=== PATIENT | female | born 1990 | race Caucasian/White ===

== ENCOUNTER 2018-03-15 16:27 | Emergency (ER) | payer BC, SELFPAY ==
[2018-03-15] MEDS ORDERED: Sodium Chloride 0.9% 1000 ML 1,000 ML IV STA (18:27)
[2018-03-15] MEDS ORDERED: TYLENOL EXTRA STRENGTH 500 MG PO PRN (18:28)
--- NOTE | 2018-03-15 18:35 | ERPHSYRPT ---
<BRITTANY CABELLO - Last Filed: 03/15/18 21:03> - History of Present Illness Source: patient Exam Limitations: no limitations Patient Subjective Stated Complaint: Right Breast Pain x2 days, hx of clogged milk duct. Breast feeding 7 month old. Triage Nursing Assessment: Pt presents to the ED with complaints of right breast pain x2 days. Pt states she is breast feeding her 7 month old child. Pt states she has hx of clogged milk duct. Decreased milk production x2 days. Breast not assessed at this time, deffered to MD. No distress noted, skin PWD. Timing/Duration: yesterday Fever Severity: moderate Associated Symptoms: cough International travel in last 2 weeks: No Hx Tetanus, Diphtheria Vaccination/Date Given: Yes Hx Influenza Vaccination/Date Given: Yes Hx Pneumococcal Vaccination/Date Given: Yes Immunizations Up to Date: Yes <LIUDMILA CUMMINS - Last Filed: 03/16/18 18:21> - History of Present Illness Time Seen by Provider: 03/15/18 18:13 Physician History: Pt has been breast feeding a 7.5 months child. She developed left breast soreness since yesterday, fever today (102.7 F). She states, she tried to pump her right breast, but nothing came out. She denies bleeding, she has mild cough for 2 weeks, and cold symptoms, but no sore throat, SOB, chest pain or vomiting. She called her physician and Clindamycin and Reglan was called in, but she did not pick it up yet. (LIUDMILA CUMMINS) Allergies/Adverse Reactions: amoxicillin [From Augmentin] Allergy (Severe, Verified 03/15/18 16:50) Shortness of Breath cephalexin [From Keflex] Allergy (Severe, Verified 03/15/18 16:50) Shortness of Breath clavulanic acid [From Augmentin] Allergy (Severe, Verified 03/15/18 16:50) Shortness of Breath codeine Allergy (Severe, Verified 03/15/18 16:50) Shortness of Breath Home Medications: Vits W-Ca,Fe,FA(<1Mg) [] 1 each PO DAILY 03/15/18 [History] - Review of Systems Constitutional: Fever, Chills Genitourinary Symptoms: Other (right breast soreness) All Other Systems: Reviewed and Negative <LIUDMILA CUMMINS - Last Filed: 03/16/18 18:21> - Past Medical History Pertinent Past Medical History: Yes Respiratory History: Asthma Other Medical History: Narcolepsy, restless leg - Past Surgical History Past Surgical History: Yes Neuro Surgical History: No Pertinent History Other Surgical History: Carpel Tunnel - Social History Smoking Status: Never smoker Exposure to second hand smoke: No Drug Use: none Patient Lives Alone: No - Female History Hx Now: No <LIUDMILA CUMMINS - Last Filed: 03/16/18 18:21> - Physical Exam General Appearance: no apparent distress Eye Exam: eyes nml inspection ENT Exam: normal ENT inspection, pharynx normal, nasal congestion Neck Exam: normal inspection, non-tender, supple, trachea midline, No JVD, No lymphadenopathy (R), No lymphadenopathy (L) Respiratory Exam: normal breath sounds, chest non-tender, lungs clear, no respiratory distress Cardiovascular/Chest Exam: normal heart sounds, regular rate/rhythm, normal peripheral pulses, No murmur, No edema, No JVD Gastrointestinal/Abdominal Exam: soft, non tender, no distention, no guarding Pelvic Exam: not done Extremity Exam: non-tender, normal inspection, no calf tenderness, no pedal edema Neurologic Exam: alert, oriented x 3 Skin Exam: normal color, warm, dry, other (right breast: mod. lateral upper quadrant tenderness, glandular, but no definite mass, abscess felt, no enlarged or tender axillary lymph nodes on the right side.), No rash Lymphatic: No adenopathy SpO2 Interpretation: normal SpO2: 98 Oxygen Delivery: Room Air <LIUDMILA CUMMINS - Last Filed: 03/16/18 18:21> - Nursing Vital Signs Nursing Vital Signs: Initial Vital Signs Temperature 98.9 F 03/15/18 16:42 Pulse Rate 117 H 03/15/18 16:42 Respiratory Rate 16 03/15/18 16:42 Blood Pressure 115/76 03/15/18 16:42 O2 Sat by Pulse Oximetry 98 03/15/18 16:42 Pain Scale Pain Intensity 0 - Course Nursing assessment & vital signs reviewed: Yes <LIUDMILA CUMMINS - Last Filed: 03/16/18 18:21> Ordered Tests: Active Orders 24 hr Category Date Time Status IV Insertion STAT Care 03/15/18 18:27 Active CHEST 2 VIEWS (PA AND LAT) Stat Exams 03/15/18 18:28 Completed BLOOD CULTURE Stat Lab 03/15/18 19:00 Received CBC W DIFF Stat Lab 03/15/18 18:45 Completed CMP Stat Lab 03/15/18 18:45 Completed CULTURE, THROAT Stat Lab 03/15/18 19:00 Received HCG,QUALITATIVE URINE Stat Lab 03/15/18 18:45 Completed Lactic Acid Stat Lab 03/15/18 18:35 Completed SED RATE [Erythrocyte Sedimentation Rate] Stat Lab 03/15/18 18:45 Completed STREP SCREEN-BETA A Stat Lab 03/15/18 19:00 Completed Medication Summary Discontinued Medications Generic Name Dose Route Start Last Admin Trade Name Freq PRN Reason Stop Dose Admin Acetaminophen 1,000 mg 03/15/18 18:28 03/15/18 18:42 Tylenol Extra Strength 500 Mg PO 04/14/18 18:27 1,000 mg Q4H PRN PRN Administration HEADACHE Acetaminophen Confirm 03/15/18 18:41 Tylenol Extra Strength 500 Mg Administered 03/15/18 18:42 Dose 1,000 mg .ROUTE .STK-MED ONE Sodium Chloride 1,000 mls @ 999 mls/hr 03/15/18 18:27 03/15/18 18:42 Sodium Chloride 0.9% 1000 Ml IV 03/15/18 19:27 999 mls/hr .Q1H1M STA Administration Sodium Chloride Confirm 03/15/18 18:41 Sodium Chloride 0.9% 1000 Ml Administered 03/15/18 18:42 Dose 1,000 mls @ ud .ROUTE .STK-MED ONE Clindamycin HCl/Dextrose 600 mg in 50 mls @ 100 mls/hr 03/15/18 21:02 21:22 Clindamycin-D5w 600 Mg/50 Ml IV 03/15/18 21:31 100 mls/hr STAT STA Administration Lab/Rad Data: Laboratory Result Diagrams 03/15/18 18:45 03/15/18 18:45 Laboratory Results 03/15/18 03/15/18 03/15/18 Range/Units 19:00 19:00 18:45 WBC (4.0-10.5) K/mm3 RBC (4.1-5.4) M/mm3 Hgb (12.0-16.0) gm/dl Hct (35-47) % MCV (78-100) fl MCH (26-32) pg MCHC (32-36) g/dl RDW (11.5-14.0) % Plt Count (150-450) K/mm3 MPV (6-9.5) fl Gran % (36.0-66.0) % Eos # (Auto) (0-0.5) Absolute Lymphs (auto) (1.0-4.6) Absolute Monos (auto) (0.0-1.3) Lymphocytes % (24.0-44.0) % Monocytes % (0.0-12.0) % Eosinophils % (0.00-5.0) % Basophils % (0.0-0.4) % Absolute Granulocytes (1.4-6.9) Basophils # (0-0.4) ESR 29 H (0-20) mm/hr Sodium (137-145) mmol/L Potassium (3.5-5.1) mmol/L Chloride (98-107) mmol/L Carbon Dioxide (22-30) mmol/L Anion Gap (5-15) MEQ/L BUN (7-17) mg/dL Creatinine (0.52-1.04) mg/dL Estimated GFR ML/MIN Glucose (74-106) mg/dL Lactic Acid (0.4-2.0) Calcium (8.4-10.2) mg/dL Total Bilirubin (0.2-1.3) mg/dL AST (14-36) U/L ALT (0-35) U/L Alkaline Phosphatase (38-126) U/L Serum Total Protein (6.3-8.2) g/dL Albumin (3.5-5.0) g/dL Urine HCG, Qual (Negative) Influenza Type A Ag NEGATIVE (NEGATIVE) Influenza Type B Ag NEGATIVE (NEGATIVE) RSV (PCR) NEGATIVE (Negative) Streptococcus Screen NEGATIVE (Negative) 03/15/18 03/15/18 03/15/18 Range/Units 18:45 18:45 18:45 WBC 13.6 H (4.0-10.5) K/mm3 RBC 4.84 (4.1-5.4) M/mm3 Hgb 14.5 (12.0-16.0) gm/dl Hct 43.5 (35-47) % MCV 89.9 (78-100) fl MCH 30.0 (26-32) pg MCHC 33.3 (32-36) g/dl RDW 13.5 (11.5-14.0) % Plt Count 242 (150-450) K/mm3 MPV 9.9 H (6-9.5) fl Gran % 83.0 H (36.0-66.0) % Eos # (Auto) 0.12 (0-0.5) Absolute Lymphs (auto) 1.37 (1.0-4.6) Absolute Monos (auto) 0.81 (0.0-1.3) Lymphocytes % 10.1 L (24.0-44.0) % Monocytes % 5.9 (0.0-12.0) % Eosinophils % 0.9 (0.00-5.0) % Basophils % 0.1 (0.0-0.4) % Absolute Granulocytes 11.30 H (1.4-6.9) Basophils # 0.02 (0-0.4) ESR (0-20) mm/hr Sodium 142 (137-145) mmol/L Potassium 3.6 (3.5-5.1) mmol/L Chloride 103 (98-107) mmol/L Carbon Dioxide 25 (22-30) mmol/L Anion Gap 17.5 H (5-15) MEQ/L BUN 16 (7-17) mg/dL Creatinine 0.74 (0.52-1.04) mg/dL Estimated GFR > 60.0 ML/MIN Glucose 93 (74-106) mg/dL Lactic Acid (0.4-2.0) Calcium 9.1 (8.4-10.2) mg/dL Total Bilirubin 0.60 (0.2-1.3) mg/dL AST 21 (14-36) U/L ALT 20 (0-35) U/L Alkaline Phosphatase 89 (38-126) U/L Serum Total Protein 8.2 (6.3-8.2) g/dL Albumin 4.4 (3.5-5.0) g/dL Urine HCG, Qual NEGATIVE (Negative) Influenza Type A Ag (NEGATIVE) Influenza Type B Ag (NEGATIVE) RSV (PCR) (Negative) Streptococcus Screen (Negative) 03/15/18 Range/Units 18:35 WBC (4.0-10.5) K/mm3 RBC (4.1-5.4) M/mm3 Hgb (12.0-16.0) gm/dl Hct (35-47) % MCV (78-100) fl MCH (26-32) pg MCHC (32-36) g/dl RDW (11.5-14.0) % Plt Count (150-450) K/mm3 MPV (6-9.5) fl Gran % (36.0-66.0) % Eos # (Auto) (0-0.5) Absolute Lymphs (auto) (1.0-4.6) Absolute Monos (auto) (0.0-1.3) Lymphocytes % (24.0-44.0) % Monocytes % (0.0-12.0) % Eosinophils % (0.00-5.0) % Basophils % (0.0-0.4) % Absolute Granulocytes (1.4-6.9) Basophils # (0-0.4) ESR (0-20) mm/hr Sodium (137-145) mmol/L Potassium (3.5-5.1) mmol/L Chloride (98-107) mmol/L Carbon Dioxide (22-30) mmol/L Anion Gap (5-15) MEQ/L BUN (7-17) mg/dL Creatinine (0.52-1.04) mg/dL Estimated GFR ML/MIN Glucose (74-106) mg/dL Lactic Acid 0.6 (0.4-2.0) Calcium (8.4-10.2) mg/dL Total Bilirubin (0.2-1.3) mg/dL AST (14-36) U/L ALT (0-35) U/L Alkaline Phosphatase (38-126) U/L Serum Total Protein (6.3-8.2) g/dL Albumin (3.5-5.0) g/dL Urine HCG, Qual (Negative) Influenza Type A Ag (NEGATIVE) Influenza Type B Ag (NEGATIVE) RSV (PCR) (Negative) Streptococcus Screen (Negative) - Progress Progress: improved <BRITTANY CABELLO - Last Filed: 03/15/18 21:03> - Progress Progress: improved <LIUDMILA CUMMINS - Last Filed: 03/16/18 18:21> - Progress Progress Note: 03/15/18 20:53 This is a 27-year-old white female who is breast-feeding a 7-month-old she states she's been having pain in her right breast for 2 days she states she has a history of a clogged breast.patient apparently had contacted her [employer] AND [employer] SERVICE MANAGER physician secondary to this and clindamycin and Reglan was called in however the patient although she has the medication did not take any. She had a temperature of 102.7 at home on arrival patient has a temperature of 98 9 pulse 117 respiration 16 blood pressure 115/76 sats are 98% On physical examination patient is a well-developed well-nourished white female she does not appear to be in acute distress Head is atraumatic normocephalic. Eyes PERRLA EOMI fundi are unremarkable. Ears TMs are intact bilaterally. Nose is clear. Throat is clear. Neck is supple full range of motion. Lungs are clear. Heart regular rate and rhythm without murmur. Abdomen soft nontender nondistended positive bowel sounds. Right breast tender laterally and inferiorly no obvious erythema no obvious masses. Extremities full range of motion, pulses equal, symmetrical 2 over 4. Neuro cranial nerves II through XII are intact DTRs symmetrical equal to 4 [place] Coma Scale is 15. Patient was initially seen by Dr. Verduzco Patient was given Tylenol and a liter of IV fluids and CBC chemistry serum lactate hCG flu and strep tests were ordered. Patient with a white count 13.6 hemoglobin 14.5 hematocrit 43.5 platelets 242. Patient's lactate is 0.6 patient does not appear to be septic in spite of positive trigger for this. Patient's chemistry sodium 142 potassium 3.6 chloride 103 bicarbonate 25 BUN 16 creatinine 0.74 glucose 93 hCG, influenza, strep are all negative. Anticipate IV clindamycin [address] Barba, the patient's FOOD AND BEVERAGE SERVICE MANAGER physician who called out her clindamycin. . 03/15/18 21:[address] Belle, the patient's FOOD AND BEVERAGE SERVICE MANAGER physician. Described the patient's physical appearance and labs. And discussed giving the patient clindamycin 600 mg IV and have her start taking her clindamycin 300 mg 3 times a day as prescribed by her FO[employer] AND BEVERAGE SERVICE MANAGER physician. Dr. Belle was agreeable to this and felt that the patient should do well if she takes her antibiotics as he prescribed. Will have patient follow-up with Dr. Belle. Patient again had a normal lactate patient's heart rate is now 94 bpm she has good perfusion to all extremities blood pressure is normal she does not appear to be in acute distress. (BRITTANY CABELLO) - Departure Time of Disposition: 21:05 Departure Disposition: Home Critical Care Time: No <BRITTANY CABELLO - Last Filed: 03/15/18 21:03> <LIUDMILA CUMMINS - Last Filed: 03/16/18 18:21> - Departure Clinical Impression: Mastitis, Breast pain, right Condition: Fair Referrals: DRAGAN BURNS [Primary Care Provider] - Additional Instructions: Return home. Plenty of fluids. Began clindamycin tomorrow morning as prescribed by Dr. Belle. Tylenol every 4 hours as needed for pain or temperature greater than 100.5. Return for acute distress or for severe symptoms. Contact Dr. Belle's office in the morning and arrange for follow-up.
[2018-03-15] MEDS ORDERED: TYLENOL EXTRA STRENGTH 500 MG ONE (18:41)
[2018-03-15] MEDS ORDERED: Sodium Chloride 0.9% 1000 ML 1,000 ML ONE (18:41)
[2018-03-15 19:14] LABS: BASOPHIL % 0.1 % (0.0-0.4); Basophil (Absolute #) 0.02 (0-0.4); Eosinophil % 0.9 % (0.00-5.0); Eosinophil (Absolute #) 0.12 (0-0.5); Hematocrit 43.5 % (35-47); Hemoglobin 14.5 gm/dl (12.0-16.0); Lymphocyte (Absolute #) 1.37 (1.0-4.6); Lymphocytes % 10.1 % (24.0-44.0); Mean Cell Volume 89.9 fl (78-100); Mean Corpuscular Hgb Concent. 33.3 g/dl (32-36); Mean Platelet Volume 9.9 fl (6-9.5); Monocyte (Absolute #) 0.81 (0.0-1.3); Monocytes % 5.9 % (0.0-12.0); Platelet Count 242 K/mm3 (150-450); Red Blood Count 4.84 M/mm3 (4.1-5.4); Red Cell Distribution Width 13.5 % (11.5-14.0); White Blood Count 13.6 K/mm3 (4.0-10.5)
[2018-03-15 19:28] LABS: ALBUMIN 4.4 g/dL (3.5-5.0); ALKALINE PHOSPHATASE 89 U/L (38-126); ANION GAP 17.5 MEQ/L (5-15); BLOOD UREA NITROGEN 16 mg/dL (7-17); CHLORIDE 103 mmol/L (98-107); Calcium 9.1 mg/dL (8.4-10.2); Carbon Dioxide 25 mmol/L (22-30); Creatinine 1 0.74 mg/dL (0.52-1.04); Glucose 93 mg/dL (74-106); Potassium 3.6 mmol/L (3.5-5.1); SGOT/AST 21 U/L (14-36); SGPT/ALT 20 U/L (0-35); SODIUM 142 mmol/L (137-145); Total Protein 8.2 g/dL (6.3-8.2)
[2018-03-15 19:49] LABS: INFLUENZA A NEGATIVE (NEGATIVE); INFLUENZA B NEGATIVE (NEGATIVE); RESPIRATORY SYNCTIAL VIRUS NEGATIVE (Negative)
[2018-03-15] MEDS ORDERED: CLINDAMYCIN-D5W 600 MG/50 ML*** 600 MG/50 ML BAG IV STA (21:02)
[2018-03-15 21:26] VITALS: BP 99/68; PULSE 90
--- NOTE | 2018-03-16 08:54 | XRAY ---
Indication: Fever and cough. Comparison: None PA/lateral chest clear. Heart and mediastinal structures within normal limits. Bony thorax intact with minimal degenerative changes. Impression: Nonacute chest.
[2018-03-16 18:21] VITALS: O2SAT 98
== END 2018-03-15 21:41 | disposition home or self-care (01) ==
LOC: ED 16:27
DX: N61.0 Mastitis without abscess (principal)
CPT/HCPCS: 36000; 36415; 71046; 80053; 83605; 84703; 85025; 85652; 87040; 87070; 87430; 87631; 96360; 96365; 99283; 99284; A9270-GY

== ENCOUNTER 2021-01-19 08:18 | Emergency (ER) | payer OTHER ==
[2021-01-19] MEDS ORDERED: GI COCKTAIL 45 ML (Maalox/Lidocaine) PO ONE (09:01)
[2021-01-19] MEDS ORDERED: PROTONIX 40 MG IV IV ONE ×2 (09:01→09:07)
[2021-01-19] MEDS ORDERED: Sodium Chloride 0.9% 1000 ML 1,000 ML IV STA (09:01)
[2021-01-19] MEDS ORDERED: XYLOCAINE HCl Viscous ONE (09:07)
[2021-01-19] MEDS ORDERED: MAALOX ES 30 ML UNIT DOSE ONE (09:08)
[2021-01-19] MEDS ORDERED: Sodium Chloride 0.9% 1000 ML 1,000 ML ONE (09:08)
[2021-01-19 09:13] LABS: Absolute Neutrophil Ct (ANC) 6.21 (1.4-6.9); BASOPHIL % 0.8 % (0.0-0.4); Basophil (Absolute #) 0.09 (0-0.4); Eosinophil % 9.8 % (0.00-5.0); Eosinophil (Absolute #) 1.09 (0-0.5); Hematocrit 42.7 % (35-47); Hemoglobin 13.8 gm/dl (12.0-16.0); Lymphocyte (Absolute #) 3.08 (1.0-4.6); Lymphocytes % 27.6 % (24.0-44.0); Mean Cell Volume 90.3 fl (78-100); Mean Corpuscular Hemoglobin 29.2 pg (26-32); Mean Corpuscular Hgb Concent. 32.3 g/dl (32-36); Mean Platelet Volume 9.8 fl (7.5-11.0); Monocytes % 6.3 % (0.0-12.0); Neutrophil % 55.5 % (36.0-66.0); Platelet Count 257 K/mm3 (150-450); Red Blood Count 4.73 M/mm3 (4.1-5.4); Red Cell Distribution Width 12.9 % (11.5-14.0); White Blood Count 11.2 K/mm3 (4.0-10.5)
[2021-01-19 09:18] LABS: Appearance CLEAR (CLEAR); Bacteria RARE /HPF (NEGATIVE); Bilirubin NEGATIVE (NEGATIVE); Blood NEGATIVE Ery/ul (0-5); Glucose NEGATIVE (NEGATIVE); Ketones NEGATIVE (NEGATIVE); Leukocyte Esterase NEGATIVE (NEGATIVE); Mucus SLIGHT /HPF (NEGATIVE); Nitrite NEGATIVE (NEGATIVE); Protein,Urine Dip NEGATIVE (Negative); RBC 0-2 /HPF (0-2); Specific Gravity 1.025 (1.005-1.025); Urobilinogen NEGATIVE mg/dL (0-1)
[2021-01-19 09:19] LABS: ALBUMIN 4.2 g/dL (3.5-5.0); ALKALINE PHOSPHATASE 65 U/L (38-126); ANION GAP 12.6 MEQ/L (5-15); BLOOD UREA NITROGEN 13 mg/dL (7-17); CHLORIDE 107 mmol/L (98-107); Calcium 9.2 mg/dL (8.4-10.2); Carbon Dioxide 23 mmol/L (22-30); Creatinine 1 0.79 mg/dL (0.52-1.04); EST GLOMERULAR FILTRATION RATE > 60.0 ML/MIN; Glucose 88 mg/dL (74-106); LIPASE 138 U/L (23-300); Potassium 3.7 mmol/L (3.5-5.1); SGOT/AST 20 U/L (14-36); SGPT/ALT 16 U/L (0-35); SODIUM 139 mmol/L (137-145); Total Protein 7.5 g/dL (6.3-8.2)
[2021-01-19 09:22] VITALS: O2SAT 100
--- NOTE | 2021-01-19 10:36 | XRAY ---
Indication: Intermittent abdomen pain 3 weeks. Multiple contiguous images obtained through the abdomen and pelvis using 80 cc Isovue 370 contrast. Comparison: None Lung bases are clear. Heart is not enlarged. Noncontrasted stomach and bowel loops appear nonobstructed. Normal appendix. No free fluid/air. Hepatomegaly measuring 22.8 cm and splenomegaly measuring 13.5 cm. Remaining liver, gallbladder, pancreas, spleen, adrenal glands, kidneys, ureters, bladder, uterus, and aorta appear unremarkable. No pathologic retroperitoneal lymphadenopathy. Osseous structures intact. No ventral or inguinal hernias. Impression: 1. Hepatosplenomegaly. 2. Remaining CT abdomen/pelvis with contrast exam is negative.
--- NOTE | 2021-01-19 10:57 | ERPHSYRPT ---
- History of Present Illness Time Seen by Provider: 01/19/21 08:49 Historian: patient Exam Limitations: no limitations Patient Subjective Stated Complaint: abd pain Triage Nursing Assessment: pt to ED c/o epigastric abd pain sharp and stabbing x 2 days. pt denies diarrhea and emesis, some occasioanl nausea. rates 7/10 pain that also radiates to lower back. 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 abd non tender, BS active in all quads Physician History: 30 years old female presented in the ER with chief complaint of upper abdominal dull aching to burning pain with radiation to the back and retrosternal area and some periumbilical pain off and on for the last 2 to 3 weeks which last for few minutes to an hour and improved but is been having continuous pain since morning with associated nausea and one episode of vomiting. Patient denies any fever or chills. She has taken ibuprofen with no significant improvement. 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 Timing/Duration: day(s) (2), intermittent, worse Activities at Onset: sleep Quality: burning, dullness Abdominal Pain Onset Location: epigastric, periumbilical Pain Radiation: epigastric Severity of Pain-Max: moderate Severity of Pain-Current: moderate Modifying Factors: Improves With: nothing Associated Symptoms: nausea, vomiting, No chest pain Previous symptoms: same symptoms as today Allergies/Adverse Reactions: amoxicillin [From Augmentin] Allergy (Severe, Verified 01/19/21 08:44) Shortness of Breath cephalexin [From Keflex] Allergy (Severe, Verified 01/19/21 08:44) Shortness of Breath clavulanic acid [From Augmentin] Allergy (Severe, Verified 01/19/21 08:44) Shortness of Breath codeine Allergy (Severe, Verified 01/19/21 08:44) Shortness of Breath Home Medications: Albuterol/Ipratropium cc [Combivent Inhaler COMMON CANISTER] 1 puff IH DAILY PRN PRN 01/19/21 [History] Dextroamphetamine/Amphetamine [Adderall 20 mg Tablet] 20 mg PO BID 01/19/21 [History] Magnesium Oxide [Magnesium] 400 mg PO DAILY 01/19/21 [History] Rizatriptan Benzoate [Rizatriptan] 10 mg PO DAILY PRN PRN 01/19/21 [History] Topiramate [Trokendi Xr] 100 mg PO DAILY 01/19/21 [History] clonazePAM [Clonazepam] 0.5 mg PO DAILY 01/19/21 [History] Hx Tetanus, Diphtheria Vaccination/Date Given: Yes Hx Influenza Vaccination/Date Given: Yes Hx Pneumococcal Vaccination/Date Given: Yes Travel Risk - International Travel Have you traveled outside of the country in past 3 weeks: No - Coronavirus Screening Are you exhibiting any of the following symptoms?: No Close contact with a COVID-19 positive Pt in past 14-21 Days: No - Review of Systems Constitutional: No Symptoms Eyes: No Symptoms Ears, Nose, & Throat: No Symptoms Respiratory: No Symptoms Cardiac: No Symptoms Abdominal/Gastrointestinal: Abdominal Pain, Nausea, Vomiting, No Diarrhea Genitourinary Symptoms: No Symptoms Musculoskeletal: No Symptoms Skin: No Symptoms Neurological: No Symptoms Psychological: No Symptoms Endocrine: No Symptoms Hematologic/Lymphatic: No Symptoms Immunological/Allergic: No Symptoms - Past Medical History Pertinent Past Medical History: Yes Respiratory History: Asthma Other Medical History: Narcolepsy, restless leg - Past Surgical History Past Surgical History: Yes Neuro Surgical History: No Pertinent History Other Surgical History: Carpel Tunnel - Social History Smoking Status: Never smoker Exposure to second hand smoke: No Drug Use: none Patient Lives Alone: No - Female History Hx Last Menstrual Period: Dec Hx Now: No - Nursing Vital Signs Nursing Vital Signs: Initial Vital Signs Temperature 97.9 F 01/19/21 08:23 Pulse Rate 80 01/19/21 08:23 Respiratory Rate 18 01/19/21 08:23 Blood Pressure 129/87 01/19/21 08:23 O2 Sat by Pulse Oximetry 99 01/19/21 08:23 Pain Scale Pain Intensity 0 - Physical Exam General Appearance: no apparent distress, alert, anxiety Eye Exam: eyes nml inspection Ears, Nose, Throat Exam: normal ENT inspection, pharynx normal Neck Exam: normal inspection, supple, full range of motion Respiratory Exam: normal breath sounds, lungs clear Cardiovascular Exam: regular rate/rhythm, normal heart sounds Gastrointestinal/Abdomen Exam: soft, normal bowel sounds, tenderness (Upper abdomen. Negative Lakhani sign) Back Exam: normal inspection, normal range of motion, No CVA tenderness Extremity Exam: normal inspection, normal range of motion Neurologic Exam: alert, oriented x 3, cooperative Skin Exam: normal color SpO2 Interpretation: normal SpO2: 100 O2 Delivery: Room Air Ordered Tests: Active Orders 24 hr Category Date Time Status IV Insertion STAT Care 01/19/21 09:01 Completed NPO (ED) STAT Care 01/19/21 09:01 Completed ABDOMEN AND PELVIS W CONTRAST [CT] Stat Exams 01/19/21 09:01 Completed CBC W DIFF Stat Lab 01/19/21 08:45 Completed CMP Stat Lab 01/19/21 08:45 Completed HCG,QUALITATIVE URINE Stat Lab 01/19/21 09:04 Completed LIPASE Stat Lab 01/19/21 08:45 Completed UA W/RFX UR CULTURE Stat Lab 01/19/21 09:04 Completed Medication Summary Discontinued Medications Generic Name Dose Route Start Last Admin Trade Name Freq PRN Reason Stop Dose Admin Al Hydrox/Mg Hydrox/Simethicone Confirm 01/19/21 09:08 Maalox Es 30 Ml Unit Dose Administered 01/19/21 09:09 Dose 30 ml .ROUTE .STK-MED ONE Sodium Chloride 1,000 mls @ 999 mls/hr 01/19/21 09:01 01/19/21 10:16 Sodium Chloride 0.9% 1000 Ml IV 01/19/21 10:01 Infused .Q1H1M STA Infusion Sodium Chloride Confirm 01/19/21 09:08 Sodium Chloride 0.9% 1000 Ml Administered 01/19/21 09:09 Dose 1,000 mls @ ud .ROUTE .STK-MED ONE Lidocaine HCl Confirm 01/19/21 09:07 Xylocaine Hcl Viscous * Administered 01/19/21 09:08 Dose 15 ml .ROUTE .STK-MED ONE Magnesium Hydroxide 45 ml 01/19/21 09:01 01/19/21 09:13 Gi Cocktail 45 Ml (Maalox/Lidocaine) PO 01/19/21 09:02 45 ml STAT ONE Administration Pantoprazole Sodium 40 mg 01/19/21 09:01 01/19/21 09:12 Protonix 40 Mg Iv IV 01/19/21 09:02 40 mg STAT ONE Administration Pantoprazole Sodium Confirm 01/19/21 09:07 Protonix 40 Mg Iv Administered 01/19/21 09:08 Dose 40 mg IV .STK-MED ONE Lab/Rad Data: Laboratory Result Diagrams 01/19/21 08:45 01/19/21 08:45 Laboratory Results 01/19/21 01/19/21 01/19/21 Range/Units 09:04 09:04 08:45 WBC (4.0-10.5) K/mm3 RBC (4.1-5.4) M/mm3 Hgb (12.0-16.0) gm/dl Hct (35-47) % MCV (78-100) fl MCH (26-32) pg MCHC (32-36) g/dl RDW (11.5-14.0) % Plt Count (150-450) K/mm3 MPV (7.5-11.0) fl Gran % (36.0-66.0) % Eos # (Auto) (0-0.5) Absolute Lymphs (auto) (1.0-4.6) Absolute Monos (auto) (0.0-1.3) Lymphocytes % (24.0-44.0) % Monocytes % (0.0-12.0) % Eosinophils % (0.00-5.0) % Basophils % (0.0-0.4) % Absolute Granulocytes (1.4-6.9) Basophils # (0-0.4) Sodium 139 (137-145) mmol/L Potassium 3.7 (3.5-5.1) mmol/L Chloride 107 (98-107) mmol/L Carbon Dioxide 23 (22-30) mmol/L Anion Gap 12.6 (5-15) MEQ/L BUN 13 (7-17) mg/dL Creatinine 0.79 (0.52-1.04) mg/dL Estimated GFR > 60.0 ML/MIN Glucose 88 (74-106) mg/dL Calcium 9.2 (8.4-10.2) mg/dL Total Bilirubin 0.10 L (0.2-1.3) mg/dL AST 20 (14-36) U/L ALT 16 (0-35) U/L Alkaline Phosphatase 65 (38-126) U/L Serum Total Protein 7.5 (6.3-8.2) g/dL Albumin 4.2 (3.5-5.0) g/dL Lipase 138 (23-300) U/L Urine Color YELLOW (YELLOW) Urine Appearance CLEAR (CLEAR) Urine pH 5.0 (5-6) Ur Specific [place] 1.025 (1.005-1.025) Urine Protein NEGATIVE (Negative) Urine Ketones NEGATIVE (NEGATIVE) Urine Blood NEGATIVE (0-5) Murtaza/ul Urine Nitrite NEGATIVE (NEGATIVE) Urine Bilirubin NEGATIVE (NEGATIVE) Urine Urobilinogen NEGATIVE (0-1) mg/dL Ur Leukocyte Esterase NEGATIVE (NEGATIVE) Urine WBC (Auto) NONE (0-5) /HPF Urine RBC (Auto) 0-2 (0-2) /HPF U Epithel Cells (Auto) NONE (FEW) /HPF Urine Bacteria (Auto) RARE (NEGATIVE) /HPF Urine Mucus (Auto) SLIGHT (NEGATIVE) /HPF Urine Culture Reflexed NO (NO) Urine Glucose NEGATIVE (NEGATIVE) mg/dL Urine HCG, Qual NEGATIVE (Negative) 01/19/21 Range/Units 08:45 WBC 11.2 H (4.0-10.5) K/mm3 RBC 4.73 (4.1-5.4) M/mm3 Hgb 13.8 (12.0-16.0) gm/dl Hct 42.7 (35-47) % MCV 90.3 (78-100) fl MCH 29.2 (26-32) pg MCHC 32.3 (32-36) g/dl RDW 12.9 (11.5-14.0) % Plt Count 257 (150-450) K/mm3 MPV 9.8 (7.5-11.0) fl Gran % 55.5 (36.0-66.0) % Eos # (Auto) 1.09 H (0-0.5) Absolute Lymphs (auto) 3.08 (1.0-4.6) Absolute Monos (auto) 0.70 (0.0-1.3) Lymphocytes % 27.6 (24.0-44.0) % Monocytes % 6.3 (0.0-12.0) % Eosinophils % 9.8 H (0.00-5.0) % Basophils % 0.8 (0.0-0.4) % Absolute Granulocytes 6.21 (1.4-6.9) Basophils # 0.09 (0-0.4) Sodium (137-145) mmol/L Potassium (3.5-5.1) mmol/L Chloride (98-107) mmol/L Carbon Dioxide (22-30) mmol/L Anion Gap (5-15) MEQ/L BUN (7-17) mg/dL Creatinine (0.52-1.04) mg/dL Estimated GFR ML/MIN Glucose (74-106) mg/dL Calcium (8.4-10.2) mg/dL Total Bilirubin (0.2-1.3) mg/dL AST (14-36) U/L ALT (0-35) U/L Alkaline Phosphatase (38-126) U/L Serum Total Protein (6.3-8.2) g/dL Albumin (3.5-5.0) g/dL Lipase (23-300) U/L Urine Color (YELLOW) Urine Appearance (CLEAR) Urine pH (5-6) Ur Specific Cl[place] (1.005-1.025) Urine Protein (Negative) Urine Ketones (NEGATIVE) Urine Blood (0-5) Murtaza/ul Urine Nitrite (NEGATIVE) Urine Bilirubin (NEGATIVE) Urine Urobilinogen (0-1) mg/dL Ur Leukocyte Esterase (NEGATIVE) Urine WBC (Auto) (0-5) /HPF Urine RBC (Auto) (0-2) /HPF U Epithel Cells (Auto) (FEW) /HPF Urine Bacteria (Auto) (NEGATIVE) /HPF Urine Mucus (Auto) (NEGATIVE) /HPF Urine Culture Reflexed (NO) Urine Glucose (NEGATIVE) mg/dL Urine HCG, Qual (Negative) - Progress Progress: improved Progress Note: 01/19/21 10:55 She is given fluid bolus along with Zofran and GI cocktail, on reevaluation her pain is much improved. She is offered pain medication which she refused. She has minimal elevated white count of 11, grossly unremarkable chemistries. I have obtained CT abdomen pelvis with contrast which did not show any acute findings but has other chronic changes. I believe her symptoms are consistent with GERD with esophagitis, recommended Protonix and avoiding NSAIDs. Discussed signs symptoms of worsening needing return to ER which she seems understanding. At this point do not think she needs any further work-up and is stable for discharge. Counseled pt/family regarding: lab results, diagnosis, need for follow-up, rad results - Departure Departure Disposition: Home Clinical Impression: GERD with esophagitis Qualifiers: Esophagitis bleeding: without hemorrhage Qualified Code(s): K21.00 - Gastro- esophageal reflux disease with esophagitis, without bleeding Condition: Stable Critical Care Time: No Referrals: RODNEY PALOMO [Primary Care Provider] - Follow Up with PCP/3 days Instructions: Acute Abdomen (Belly Pain), Adult (DC) Additional Instructions: Take Tylenol as needed for pain. Do not take ibuprofen. Continue with Protonix. Follow-up with your primary care physician for reevaluation. Return to ER for any worsening pain vomiting or if develop fever chills etc. Prescriptions: PANTOPRAZOLE 40 mg Tablet [Protonix 40MG Tablet] 40 mg PO QAM #30 tab
[2021-01-19 11:17] VITALS: BP 109/75; PULSE 74
== END 2021-01-19 11:16 | disposition home or self-care (01) ==
LOC: ED 08:18
DX: K21.00 Gastro-esophageal reflux disease with esophagitis, without bleeding (principal); R10.10 Upper abdominal pain, unspecified; R11.2 Nausea with vomiting, unspecified; Z79.899 Other long term (current) drug therapy
CPT/HCPCS: 36000; 36415; 74177; 80053; 81001; 83690; 84703; 85025; 96360; 96374; 99284; A9270-GY

== ENCOUNTER 2025-02-04 09:50 | Emergency (ER) | payer OTHER ==
[2025-02-04 10:13] VITALS: TEMP 97.5
[2025-02-04 11:11] LABS: Absolute Neutrophil Ct (ANC) 5.75 x10^3/uL (1.56-6.13); BASOPHIL % 0.8 % (0.1-1.2); Basophil (Absolute #) 0.07 x10^3/uL (0.01-0.08); Eosinophil % 1.3 % (0.7-5.8); Eosinophil (Absolute #) 0.12 x10^3/uL (0.04-0.36); Hematocrit 37.5 % (34.1-44.9); Hemoglobin 12.6 g/dL (11.2-15.7); IMMATURE GRAN # 0.03 x10^3u/L (0.001-0.031); IMMATURE GRAN % 0.3 % (0.001-0.429); Lymphocyte (Absolute #) 2.24 x10^3/uL (1.18-3.74); Lymphocytes % 25.1 % (19.3-51.7); Mean Cell Volume 88.9 fL (79.4-94.8); Mean Corpuscular Hemoglobin 29.9 pg (25.6-32.2); Mean Corpuscular Hgb Concent. 33.6 g/dL (32.2-35.5); Mean Platelet Volume 9.2 fL (9.4-12.3); Monocyte (Absolute #) 0.71 x10^3/uL (0.24-0.86); Neutrophil % 64.5 % (34.0-71.1); Platelet Count 260 x10^3/uL (182-369); Red Blood Count 4.22 x10^6/uL (3.93-5.22); Red Cell Distribution Width 12.6 % (11.7-14.4); White Blood Count 8.9 x10^3/uL (3.98-10.04)
[2025-02-04] MEDS ORDERED: Norflex 60 MG/2 ML ONE (11:17)
[2025-02-04] MEDS ORDERED: TORAdol 30 mg Injection ONE (11:17)
[2025-02-04] MEDS: TORAdol 30 mg Injection IV ONE (11:20)
[2025-02-04] MEDS: Norflex 60 MG/2 ML IV ONE (11:20)
[2025-02-04 11:27] LABS: Appearance Clear (Clear); Bacteria None Seen /HPF (None Seen); Bilirubin Negative (Negative); Blood Moderate (Negative); Epithelial Cells None Seen /HPF (None Seen); Glucose, Urine Negative (Negative); Hyaline Casts NONE SEEN /LPF (0-2); Ketones Trace (Negative); Leukocyte Esterase Negative (Negative); Nitrite Negative (Negative); Ph 5.5 (4.6-8.0); Protein,Urine Dip Negative (Negative); RBC 51-100 /HPF (0-5); Specific Gravity 1.015 (1.005-1.030); Urobilinogen 0.2 mg/dL (0.2); WBC 0-2 /HPF (0-5)
[2025-02-04 11:27] LABS: ALBUMIN 4.3 g/dL (3.5-5.0); ANION GAP 14.7 MEQ/L (5-15); BILIRUBIN,TOTAL 0.7 mg/dL (0.2-1.3); Calcium 8.8 mg/dL (8.4-10.2); Creatinine 1 0.88 mg/dL (0.52-1.04); EST GLOMERULAR FILTRATION RATE 87.3 ML/MIN; Potassium 3.6 mmol/L (3.5-5.1); Total Protein 7.2 g/dL (6.3-8.2)
[2025-02-04 12:01] VITALS: RESP 18
--- NOTE | 2025-02-04 12:23 | ERPHSYRPT ---
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 Patient was at work and at approximately 4 to 5:00 AM she began having sharp pain in the right infrascapular region. She did not fall or suffer any acute trauma. She denies abdominal pain. She denies chest pain. She has never had this kind of pain in the past. She has a history of gastroesophageal reflux disease. Timing/Duration: today Method of Injury: unknown Quality: sharp Back Pain Location: T-spine Severity of Pain-Max: moderate Severity of Pain-Current: moderate Modifying Factors: Improves With: movement Associated Symptoms: denies symptoms, muscle spasms, No urinary incontinence, No loss of bowel control, No nausea, No vomiting, No numbness in legs/feet, No lower back pain Previous symptoms: no prior history, no recent treatment Allergies/Adverse Reactions: amoxicillin [From Augmentin] Allergy (Severe, Verified 02/04/25 10:13) Shortness of Breath cephalexin [From Keflex] Allergy (Severe, Verified 02/04/25 10:13) Shortness of Breath clavulanic acid [From Augmentin] Allergy (Severe, Verified 02/04/25 10:13) Shortness of Breath codeine Allergy (Severe, Verified 02/04/25 10:13) Shortness of Breath Home Medications: Dextroamphetamine/Amphetamine [Adderall 20 mg Tablet] 30 mg PO BID 01/19/21 [History] Magnesium Oxide [Magnesium] 400 mg PO DAILY 01/19/21 [History] Atogepant [Qulipta] 60 mg PO DAILY 02/04/25 [History] Cholecalciferol (Vitamin D3) [Vitamin D3] 50 mcg PO DAILY 02/04/25 [History] Loratadine 10 mg [Claritin 10 mg] 10 mg PO DAILY 02/04/25 [History] Hx Tetanus, Diphtheria Vaccination/Date Given: Yes Hx Influenza Vaccination/Date Given: Yes Hx Pneumococcal Vaccination/Date Given: Yes Travel Risk - International Travel Have you traveled outside of the country in past 3 weeks: No - Emerging Infectious Disease Are you exhibiting symptoms associated with any current EIDs: No - Review of Systems Constitutional: No Symptoms Eyes: No Symptoms Ears, Nose, & Throat: No Symptoms Respiratory: No Symptoms Cardiac: No Symptoms Abdominal/Gastrointestinal: No Symptoms Genitourinary Symptoms: No Symptoms Musculoskeletal: Back Pain (Right infrascapular region and thoracic level pain) Skin: No Symptoms Neurological: No Symptoms Psychological: No Symptoms Endocrine: No Symptoms Hematologic/Lymphatic: No Symptoms Immunological/Allergic: No Symptoms All Other Systems: Reviewed and Negative - Past Medical History Pertinent Past Medical History: Yes Respiratory History: Asthma Other Medical History: Narcolepsy, restless leg - Past Surgical History Past Surgical History: Yes Neuro Surgical History: No Pertinent History Other Surgical History: Carpel Tunnel - Female History Hx Last Menstrual Period: 02/03/2025 Hx Now: No - Social History Smoking Status: Never smoker Exposure to second hand smoke: No Drug Use: none - Social Determinants of Health Will the patient participate in the screening: Yes Do you worry about a steady place to live?: No Do you have any problems with any of the following?: No known problems In the past 12 months,have you had to go without utilities?: No Transportation Issues: No Has anyone in your support network made you feel unsafe?: No Have you or anyone in your house had to go w/o enough food: No - Nursing Vital Signs Nursing Vital Signs: Initial Vital Signs Temperature 97.5 F 02/04/25 10:02 Pulse Rate 85 02/04/25 10:02 Blood Pressure 109/78 02/04/25 10:02 O2 Sat by Pulse Oximetry 100 02/04/25 10:02 Pain Scale Pain Intensity [Medial Back] 8 Pain Intensity 0 - Physical Exam General Appearance: no apparent distress, alert, anxiety, obese Eye Exam: PERRL/EOMI, eyes nml inspection Ears, Nose, Throat Exam: normal ENT inspection, moist mucous membranes Neck Exam: normal inspection, non-tender, supple, full range of motion Respiratory Exam: normal breath sounds, lungs clear, airway intact, No chest tenderness, No respiratory distress Cardiovascular Exam: regular rate/rhythm, normal heart sounds, normal peripheral pulses Gastrointestinal Exam: soft, normal bowel sounds, No tenderness Pelvic Exam: not done Rectal Exam: not done Back Exam: normal inspection, normal range of motion, muscle spasm (Muscular pain to palpation between the thoracic level and infrascapular region on the right side), No CVA tenderness, No vertebral tenderness (No thoracic spine vertebral tenderness to palpation) Extremity Exam: normal inspection, normal range of motion, pelvis stable Neurologic Exam: alert, oriented x 3, cooperative, oil pumper II-XII nml as tested, nml cerebellar function, nml station & gait, sensation nml Skin Exam: normal color, warm, dry Lymphatic Exam: No adenopathy SpO2 Interpretation: normal SpO2: 97 O2 Delivery: Room Air - Course Nursing assessment & vital signs reviewed: Yes EKG Interpreted by Me: RATE (79), NORMAL AXIS, NORMAL INTERVALS, NORMAL QRS, Other (No acute ischemic changes. QTc is 458) Ordered Tests: Active Orders 24 hr Category Date Time Status EKG-ER Only STAT Care 02/04/25 10:55 Active IV Insertion STAT Care 02/04/25 10:55 Active CHEST WITHOUT CONTRAST [CT] Stat Exams 02/04/25 12:14 Completed RECONSTRUCTION [CT] Stat Exams 02/04/25 12:15 Completed AMYLASE Stat Lab 02/04/25 11:09 Completed CBC W DIFF Stat Lab 02/04/25 11:09 Completed CMP Stat Lab 02/04/25 11:09 Completed CULTURE,URINE Stat Lab 02/04/25 11:16 Received D-DIMER QUANTITATIVE Stat Lab 02/04/25 11:09 Completed LIPASE Stat Lab 02/04/25 11:09 Completed TROPONIN Q4H Lab 02/04/25 11:09 Completed TROPONIN Q4H Lab 02/04/25 15:00 Ordered TROPONIN Q4H Lab 02/04/25 19:00 Ordered UA W/RFX UR CULTURE Stat Lab 02/04/25 11:16 Completed Medication Summary Discontinued Medications Generic Name Dose Route Start Last Admin Trade Name Freq PRN Reason Stop Dose Admin Ketorolac Tromethamine 30 mg 02/04/25 10:55 02/04/25 11:20 Ketorolac Tromethamine 30 Mg/Ml Inj IV 02/04/25 10:56 30 mg STAT ONE Administration Ketorolac Tromethamine Confirm 02/04/25 11:17 Ketorolac Tromethamine 30 Mg/Ml Inj Administered 02/04/25 11:18 Dose 30 mg .ROUTE .STK-MED ONE Orphenadrine Citrate 60 mg 02/04/25 10:56 02/04/25 11:20 Orphenadrine Citrate 60 Mg/2 Ml Vial IV 02/04/25 10:57 60 mg STAT ONE Administration Orphenadrine Citrate Confirm 02/04/25 11:17 Orphenadrine Citrate 60 Mg/2 Ml Vial Administered 02/04/25 11:18 Dose 60 mg .ROUTE .[facility] Lab/Rad Data: Laboratory Result Diagrams 02/04/25 11:09 02/04/25 11:09 Laboratory Results 02/04/25 02/04/25 02/04/25 Range/Units 11:16 11:09 11:09 WBC (3.98-10.04) x10^3/uL RBC (3.93-5.22) x10^6/uL Hgb (11.2-15.7) g/dL Hct (34.1-44.9) % MCV (79.4-94.8) fL MCH (25.6-32.2) pg MCHC (32.2-35.5) g/dL RDW (11.7-14.4) % Plt Count (182-369) x10^3/uL MPV (9.4-12.3) fL Gran % (34.0-71.1) % Immature Gran % (Auto) (0.001-0.429) % Nucleat RBC Rel Count (0.00-0.2) % Eos # (Auto) (0.04-0.36) x10^3/uL Immature Gran # (Auto) (0.001-0.031) x10^3u/L Absolute Lymphs (auto) (1.18-3.74) x10^3/uL Absolute Monos (auto) (0.24-0.86) x10^3/uL Absolute Nucleated RBC (0.00-0.012) x10^3u/L Lymphocytes % (19.3-51.7) % Monocytes % (4.7-12.5) % Eosinophils % (0.7-5.8) % Basophils % (0.1-1.2) % Absolute Granulocytes (1.56-6.13) x10^3/uL Basophils # (0.01-0.08) x10^3/uL D-Dimer 0.35 (0.0-0.50) mg/L Sodium (135-145) mmol/L Potassium (3.5-5.1) mmol/L Chloride (98-107) mmol/L Carbon Dioxide (22-30) mmol/L Anion Gap (5-15) MEQ/L BUN (7-17) mg/dL Creatinine (0.52-1.04) mg/dL Estimated GFR ML/MIN Glucose (74-106) mg/dL Calcium (8.4-10.2) mg/dL Total Bilirubin (0.2-1.3) mg/dL AST (14-36) U/L ALT (0-35) U/L Alkaline Phosphatase (38-126) U/L Troponin I < 0.012 (0.000-0.033) ng/mL Serum Total Protein (6.3-8.2) g/dL Albumin (3.5-5.0) g/dL Amylase (30-110) U/L Lipase (23-300) U/L Urine Color Yellow (Yellow) Urine Appearance Clear (Clear) Urine pH 5.5 (4.6-8.0) Ur Specific [place] 1.015 (1.005-1.030) Urine Protein Negative (Negative) Urine Glucose (UA) Negative (Negative) mg/dL Urine Ketones Trace A (Negative) Urine Blood Moderate A (Negative) Urine Nitrite Negative (Negative) Urine Bilirubin Negative (Negative) Urine Urobilinogen 0.2 (0.2) mg/dL Ur Leukocyte Esterase Negative (Negative) U Hyaline Cast (Auto) NONE SEEN (0-2) /LPF Urine Microscopic RBC 51-100 A (0-5) /HPF Urine Microscopic WBC 0-2 (0-5) /HPF Ur Epithelial Cells None Seen (None Seen) /HPF Urine Bacteria None Seen (None Seen) /HPF Urine Culture Reflexed YES (NO) 02/04/25 02/04/25 Range/Units 11:09 11:09 WBC 8.9 (3.98-10.04) x10^3/uL RBC 4.22 (3.93-5.22) x10^6/uL Hgb 12.6 (11.2-15.7) g/dL Hct 37.5 (34.1-44.9) % MCV 88.9 (79.4-94.8) fL MCH 29.9 (25.6-32.2) pg MCHC 33.6 (32.2-35.5) g/dL RDW 12.6 (11.7-14.4) % Plt Count 260 (182-369) x10^3/uL MPV 9.2 L (9.4-12.3) fL Gran % 64.5 (34.0-71.1) % Immature Gran % (Auto) 0.3 (0.001-0.429) % Nucleat RBC Rel Count 0.0 (0.00-0.2) % Eos # (Auto) 0.12 (0.04-0.36) x10^3/uL Immature Gran # (Auto) 0.03 (0.001-0.031) x10^3u/L Absolute Lymphs (auto) 2.24 (1.18-3.74) x10^3/uL Absolute Monos (auto) 0.71 (0.24-0.86) x10^3/uL Absolute Nucleated RBC 0.00 (0.00-0.012) x10^3u/L Lymphocytes % 25.1 (19.3-51.7) % Monocytes % 8.0 (4.7-12.5) % Eosinophils % 1.3 (0.7-5.8) % Basophils % 0.8 (0.1-1.2) % Absolute Granulocytes 5.75 (1.56-6.13) x10^3/uL Basophils # 0.07 (0.01-0.08) x10^3/uL D-Dimer (0.0-0.50) mg/L Sodium 140 (135-145) mmol/L Potassium 3.6 (3.5-5.1) mmol/L Chloride 102 (98-107) mmol/L Carbon Dioxide 26 (22-30) mmol/L Anion Gap 14.7 (5-15) MEQ/L BUN 16 (7-17) mg/dL Creatinine 0.88 (0.52-1.04) mg/dL Estimated GFR 87.3 ML/MIN Glucose 92 (74-106) mg/dL Calcium 8.8 (8.4-10.2) mg/dL Total Bilirubin 0.70 (0.2-1.3) mg/dL AST 26 (14-36) U/L ALT 19 (0-35) U/L Alkaline Phosphatase 58 (38-126) U/L Troponin I (0.000-0.033) ng/mL Serum Total Protein 7.2 (6.3-8.2) g/dL Albumin 4.3 (3.5-5.0) g/dL Amylase 48 (30-110) U/L Lipase 106 (23-300) U/L Urine Color (Yellow) Urine Appearance (Clear) Urine pH (4.6-8.0) Ur Specific [place] (1.005-1.030) Urine Protein (Negative) Urine Glucose (UA) (Negative) mg/dL Urine Ketones (Negative) Urine Blood (Negative) Urine Nitrite (Negative) Urine Bilirubin (Negative) Urine Urobilinogen (0.2) mg/dL Ur Leukocyte Esterase (Negative) U Hyaline Cast (Auto) (0-2) /LPF Urine Microscopic RBC (0-5) /HPF Urine Microscopic WBC (0-5) /HPF Ur Epithelial Cells (None Seen) /HPF Urine Bacteria (None Seen) /HPF Urine Culture Reflexed (NO) - Progress Progress: improved, pain not gone completely, re-examined Progress Note: 02/04/25 12:24 I medical decision making and the assignment of moderate complexity to this patient's medical issue today is based on review of the patient's past medical history, review of the patient's medication list, review the patient drug allergy list, history present illness and physical findings on examination. The workup in this patient includes placement of intravenous line, CBC, CMP, amylase, lipase, D-dimer level, twelve-lead EKG, troponin level, CT scan of the chest with contrast if the D-dimer is elevated and without contrast if the D- dimer level is normal. In addition we will order CT scan of the thoracic spine. Differential diagnosis includes but is not limited to muscle skeletal pain, acute thoracic spine abnormality, acute intrathoracic abnormality, electrolyte abnormality, arrhythmia, myocardial infarction 02/04/25 13:22 I interpreted the patient's laboratory data results. Based on the laboratory data results, patient does have hematuria but no other acute, emergent medical issues. 02/04/25 14:[address] scan of the chest without contrast was interpreted by the radiologist and I reviewed the impression. The impression states minimal multilevel degenerative spondylosis. The remaining CT scan of the chest without contrast is normal. CT scan showed film of the thoracic spine shows minimal multilevel degenerative spondylosis. There is no new or acute findings. Counseled pt/family regarding: lab results, diagnosis, need for follow-up, rad results Medical Desision Making - Independent Historian Additional History obtained from: Mother - Diagnostic Testing Diagnostic test were ordered, analyzed, and reviewed by me: Yes Radiological Interpretation: Reviewed by me, Teleradiologist Report - Risk of complications The pt has a mod risk of morbidity or mortality based on: Need for prescription drug management - Departure Departure Disposition: Home Clinical Impression: Back pain Condition: Stable Critical Care Time: No Referrals: RODNEY PALOMO [Primary Care Provider] - Follow up/PCP as directed Additional Instructions: Alternate ice and heat to tender area 3 times today for the next 3 days. Call your primary care provider today, 02/04/2025, to make arrangements for follow-up appointment for further evaluation management. Take your medications as prescribed. Prescriptions: Prednisone 10 mg [Deltasone 10 mg] 10 mg PO TID #12 tablet Orphenadrine Citrate 100 mg [Norflex 100 MG Tablet] 100 mg PO BID #10 tab
--- NOTE | 2025-02-04 13:49 | XRAY ---
Indication: Right chest and scapular pain. Multiple contiguous axial images obtained through the chest without contrast. Comparison: None Lungs demonstrate minimal bilateral dependent atelectasis. No suspicious pulmonary mass/nodule, infiltrate, or effusion. Heart not enlarged. Aorta normal in course and caliber. No pathologic mediastinal lymphadenopathy. Bony thorax demonstrates minimal degenerative changes throughout thoracic spine. No suspicious bony lesions. Limited upper abdomen including adrenal glands are unremarkable. Impression: Minimal multilevel thoracic degenerative spondylosis. Remaining CT chest without contrast exam normal.
--- NOTE | 2025-02-04 13:53 | XRAY ---
Indication: Thoracic pain. Sagittal, coronal, and axial reformatted images thoracic spine obtained using raw data from same day CT chest exam. Comparison: November 07, 2019. Again minimal multilevel endplate spurring. Vertebral body heights/disc spaces maintained. No acute compression fracture/subluxation. CT chest reported separately. Impression: Again minimal multilevel degenerative spondylosis. No new/acute findings.
[2025-02-04] MEDS ORDERED: Zofran 4 MG/2 ML VIAL ONE (14:20)
[2025-02-04] MEDS ORDERED: MORPHINE SULFATE 2 MG INJ ONE (14:20)
[2025-02-04] MEDS: MORPHINE SULFATE 2 MG INJ IV ONE (14:23)
[2025-02-04] MEDS: Zofran 4 MG/2 ML VIAL IV ONE (14:23)
[2025-02-04 14:45] VITALS: BP 97/67; PULSE 78; O2SAT 98
== END 2025-02-04 14:47 | disposition home or self-care (01) ==
LOC: ED 09:50
DX: M54.6 Pain in thoracic spine (principal); Z79.52 Long term (current) use of systemic steroids; Z79.891 Long term (current) use of opiate analgesic; Z79.899 Other long term (current) drug therapy
CPT/HCPCS: 36415; 71250; 76376; 80053; 81001; 82150; 83690; 84484; 85025; 85379; 87086; 93005; 96374; 96375; 99284; 99285; J1885; J2270; J2360; J2405